=== PATIENT | female | born 1990 | race Caucasian/White ===

== ENCOUNTER 2021-08-20 13:03 | Emergency (ER) | payer OTHER ==
[~2021-08-20] VITALS: Ht 172.7 cm; Wt 113.4 kg
[2021-08-20 13:55] LABS: BASOPHIL 0.7 % (0-2); HCT 42.1 % (37.0-47.0); LYMPHOCYTE 22.6 % (15-48); MCH 29.3 pg (25.0-31.0); MCHC 33.3 g/dL (32.0-36.0); MCV 88.1 fL (78.0-100.0); MONOCYTE 5.4 % (0-12); NEUTROPHIL 70.1 % (41-80); NRBC 0; PLT 302 K/uL (150-400); RBC 4.78 M/uL (4.20-5.40); RDW 14.7 % (11.5-14.0); WBC 8.4 K/uL (4.0-10.5)
[2021-08-20 14:06] LABS: BUN 12 mg/dL (7-18); BUN/CREAT RATIO (CALC) 18.5 RATIO; CHLORIDE 103 mmol/L (98-107); CO2 (BICARBONATE) 27 mmol/L (21-32); CREATININE 0.65 mg/dL (0.51-0.95); GLUCOSE 93 mg/dL (74-106); POTASSIUM 3.7 mmol/L (3.5-5.1)
[2021-08-20 14:49] LABS: INFLUENZA A NAA NEGATIVE (NEGATIVE)
[2021-08-20 14:58] LABS: CORONAVIRUS 2019 SARS-COV-2 POSITIVE (NEGATIVE)
[2021-08-20] MEDS ORDERED: VENTOLIN HFA IN18 GM INH (16:04)
[2021-08-20] MEDS ORDERED: MEDROL 4MG DOSEP4 MG PO (16:04)
== END 2021-08-20 16:54 | disposition home or self-care (01) ==
LOC: FER 13:03
PROVIDERS: Nurse Practitioner Family
DX: U07.1 COVID-19 (principal); R07.89 Other chest pain; I10 Essential (primary) hypertension; Z79.899 Other long term (current) drug therapy
CPT/HCPCS: 36415; 71045; 71275; 80048; 84484; 85025; 85379; 93005; J1885; J2405; Q9967; U0002